=== PATIENT | female | born 1985 | race African-American/Black ===

== ENCOUNTER 2016-12-24 18:53 | Emergency (ER) | payer OTHER ==
[~2016-12-24] VITALS: Ht 154.9 cm; Wt 95.3 kg
[~2016-12-24 18:53] MED LIST: AMOXICILLIN 50500 MG PO; LISINOPRIL10 MG PO; NAPROSYN500 MG PO
[2016-12-24] MEDS ORDERED: IBUPROFEN 800800 M1 PO (19:54)
[2016-12-24 20:07] VITALS: BP 145/87
== END 2016-12-24 20:04 | disposition home or self-care (01) ==
LOC: ER 18:53
DX: S63.610A Unspecified sprain of right index finger, initial encounter (principal); S63.612A Unspecified sprain of right middle finger, initial encounter; J45.909 Unspecified asthma, uncomplicated; I10 Essential (primary) hypertension; X50.1XXA Overexertion from prolonged static or awkward postures, initial encounter; Y93.72 Activity, wrestling; Y92.89 Other specified places as the place of occurrence of the external cause; Y99.8 Other external cause status

== ENCOUNTER 2018-03-09 10:45 | Emergency (ER) | payer OTHER ==
[~2018-03-09] VITALS: Ht 165.1 cm; Wt 95.3 kg
[~2018-03-09 10:45] MED LIST changes: +IBUPROFEN 800800 M1 PO
[2018-03-09 11:51] LABS: ABSOLUTE NEUTROPHILS 2.2 thou/uL (1.4-8.2); BASOPHILS 0.7 % (0.0-2.0); EOSINOPHILS 0.4 % (0.0-3.0); HEMATOCRIT 37.2 % (37.0-47.0); HEMOGLOBIN 12.3 gm/dL (12.0-15.0); LYMPHOCYTES 42.3 % (24.0-44.0); MCHC 33.1 g/dL (28.0-37.0); MCV 75.5 fL (80.0-100.0); PLATELET COUNT 358 thou/uL (150-400); POLYS 46.6 % (36.0-66.0); RBC 4.93 mil/uL (4.20-5.00); RDW 14.3 % (10.5-14.5); WBC 4.7 thou/uL (4.0-11.0)
[2018-03-09 12:03] LABS: CALCIUM 9.3 mg/dL (8.5-10.1); CREATININE 0.7 mg/dL (0.6-1.0); POTASSIUM 3.8 mmol/L (3.5-5.1)
[2018-03-09 12:10] VITALS: BP 147/98
[2018-03-09] MEDS ORDERED: NORFLEX100 MG PO (12:59)
[2018-03-09] MEDS ORDERED: ZESTRIL5 MG PO (12:59)
== END 2018-03-09 13:20 | disposition home or self-care (01) ==
LOC: ER 10:45
PROVIDERS: Physician Assistant
DX: R51 Headache (principal); I10 Essential (primary) hypertension

== ENCOUNTER 2020-08-31 08:15 | Emergency (ER) | payer OTHER ==
[~2020-08-31] VITALS: Ht 157.5 cm; Wt 108.9 kg
[~2020-08-31 08:15] MED LIST changes: +NORFLEX100 MG PO; +ZESTRIL5 MG PO
[2020-08-31 08:18] VITALS: BP 138/92
[2020-08-31] MEDS ORDERED: TRAMADOL 50 MG50 MG PO (08:50)
== END 2020-08-31 09:22 | disposition home or self-care (01) ==
LOC: ER 08:15
DX: S63.418D Traumatic rupture of collateral ligament of other finger at metacarpophalangeal and interphalangeal joint, subsequent encounter (principal); J45.909 Unspecified asthma, uncomplicated; I10 Essential (primary) hypertension; Z79.899 Other long term (current) drug therapy; Z88.8 Allergy status to other drugs, medicaments and biological substances; X50.1XXD Overexertion from prolonged static or awkward postures, subsequent encounter